=== PATIENT | female | born 1940 | race Caucasian/White ===

== ENCOUNTER 2018-11-26 15:22 | Emergency (ER) | payer MEDICARE ==
[~2018-11-26] VITALS: Ht 167.6 cm; Wt 79.5 kg
[2018-11-26] MEDS ORDERED: normal saline 1000ML IV soln IVB ONE ×2 (15:35→18:15)
[2018-11-26] MEDS ORDERED: ondansetron/PF 4mg/2ml inj IV ONE ×2 (15:35→17:45)
[2018-11-26 15:55] LABS: BASOPHILS % (AUTO) 0.6 % (0-1); EOSINOPHILS # (AUTO) 0.1 X10'3 (0-0.9); EOSINOPHILS % (AUTO) 0.7 % (0-6); HEMOGLOBIN 14.6 g/dl (12.0-16.0); LYMPHOCYTES # (AUTO) 0.6 X10'3 (1.1-4.8); LYMPHOCYTES % (AUTO) 6.3 % (21-51); MEAN CORPUSCULAR HEMOGLOBIN 33.6 PG (27.0-31.0); MEAN CORPUSCULAR HGB CONC 33.9 g/dL (33.0-36.5); MEAN CORPUSCULAR VOLUME 99.3 FL (78-98); MEAN PLATELET VOLUME 7.8 FL (7.4-10.4); MONOCYTES # (AUTO) 0.5 X10'3 (0-0.9); MONOCYTES % (AUTO) 5.2 % (2-12); NEUTROPHILS # (AUTO) 7.8 X10'3 (1.8-7.7); NEUTROPHILS % (AUTO) 87.2 % (42-75); PLATELET COUNT 221 X10'3 (140-440); RED BLOOD COUNT 4.33 X10'6 (4.20-5.60); RED CELL DISTRIBUTION WIDTH 12.9 % (11.5-14.5); WHITE BLOOD COUNT 8.9 X10'3 (4.5-11.0)
[2018-11-26] MEDS: diatr meglu/diatrizoate 30ml oral sol.-(3 dose) bottle PO SCH ×4 (15:56→17:47)
[2018-11-26 16:09] LABS: ALANINE AMINOTRANSFERASE 20 U/L (12-78); ALBUMIN 3.4 G/DL (3.4-5.0); BLOOD UREA NITROGEN 7 MG/DL (7-18); BUN/CREATININE RATIO 11.1 (6.6-38.0); CALCIUM 8.9 MG/DL (8.5-10.1); CREATININE 0.63 MG/DL (0.40-0.90); GLUCOSE 131 MG/DL (70-104); LIPASE 86 U/L (73-393); eGFR > 90 ML/MIN
[2018-11-26 16:10] LABS: ALBUMIN/GLOBULIN RATIO 0.8 (1.1-1.5); ALKALINE PHOSPHATASE 103 IU/L (46-116); ANION GAP 9 (8-16); ASPARTATE AMINO TRANSFERASE 9 U/L (10-37); BILIRUBIN,TOTAL 0.6 MG/DL (0.1-1.0); CHLORIDE 105 MMOL/L (99-107); POTASSIUM 3.9 MMOL/L (3.5-5.1); SODIUM 140 MMOL/L (135-145); TOTAL CARBON DIOXIDE 26.1 MMOL/L (24-32); TOTAL PROTEIN 7.5 G/DL (6.4-8.2)
[2018-11-26] MEDS ORDERED: proCHLORperazine 10 MG/2 ml inj IV ONE (18:05)
[2018-11-26 18:12] LABS: CLARITY,URINE SLIGHTLY CLOUDY (Clear); COLOR,URINE YELLOW (Yellow); GLUCOSE, URINE NEGATIVE (Neg); KETONES,URINE 15 mg/dl (Neg); LEUKOCYTE ESTERASE ,URINE NEGATIVE (Neg); NITRITES, URINE NEGATIVE (Neg); OCCULT BLOOD,URINE NEGATIVE (Neg); PH,URINE 5.5 (4.8-8.0); PROTEIN,URINE NEGATIVE (Neg)
[2018-11-26 18:15] LABS: UA COLLECTION TYPE CLN CATCH MIDSTREAM
[2018-11-26 18:22] LABS: BACTERIA,URINE FEW /HPF (Neg); MUCUS STRANDS FEW /LPF (Neg); RBC,URINE 0-2 /HPF (0-2); SQUAMOUS EPITHELIAL CELL,UR MANY /LPF (FEW); WBC,URINE 0-4 /HPF (0-4)
--- NOTE | 2018-11-26 18:35 | NUR ---
pt reports her nausea is improved. [facility] non-admin - per previous rn pt went to CT already.
[2018-11-26 18:36] VITALS: BP 141/66
--- NOTE | 2018-11-26 18:58 | NUR ---
daughter at bedside - PA updated pt on plan of care
--- NOTE | 2018-11-26 19:17 | NUR ---
PT GIVEN ICE CHIPS, CRACKERS AND APPLE JUICE FOR PO CHALLENGE. EXPLAINED TO PT TO START SLOW AND ADVANCE TOLERATED.
[2018-11-26] MEDS ORDERED: POLY17PO10 PO (19:29)
[2018-11-26] MEDS ORDERED: AMOX-422 PO (19:29)
[2018-11-26] MEDS ORDERED: BISA10SU60 RC (19:29)
[2018-11-26] MEDS ORDERED: ONDA4TAB6 PO (19:29)
[2018-11-26] MEDS ORDERED: polyethylene glycol 3350 17gm powd pack PO ONE (19:30)
[2018-11-26] MEDS ORDERED: lactulose 20gm/30ml cup PO ONE (19:30)
== END 2018-11-26 20:01 | disposition home or self-care (01) ==
LOC: ER 15:22
DX: K57.92 Diverticulitis of intestine, part unspecified, without perforation or abscess without bleeding (principal); K59.00 Constipation, unspecified; E86.0 Dehydration; Z79.2 Long term (current) use of antibiotics; Z79.899 Other long term (current) drug therapy
CPT/HCPCS: 36415; 71045; 74176; 80053; 81001; 83605; 83690; 84145; 85025; 87040; 93005; 96361; 96374; 96375; 96376; 99284; J0780; J2405; J7030; Q9963

== ENCOUNTER 2023-02-04 17:41 | Emergency (ER) | payer MEDICARE ==
[~2023-02-04] VITALS: Ht 170.2 cm; Wt 81.8 kg
[~2023-02-04 17:41] MED LIST: BISA10SU60 RC; ONDA4TAB6 PO
[2023-02-04 18:32] LABS: BILIRUBIN,URINE NEGATIVE (Neg); CLARITY,URINE CLOUDY (Clear); COLOR,URINE YELLOW (Yellow); GLUCOSE, URINE NEGATIVE (Neg); KETONES,URINE TRACE mg/dl (Neg); LEUKOCYTE ESTERASE ,URINE LARGE (Neg); NITRITES, URINE NEGATIVE (Neg); OCCULT BLOOD,URINE MODERATE (Neg); PROTEIN,URINE 100 mg/dl (Neg); UROBILINOGEN,URINE 0.2 E.U/dL (0.2-1.0)
[2023-02-04 18:32] LABS: BASOPHILS # (AUTO) 0.1 X10'3 (0-0.2); BASOPHILS % (AUTO) 0.7 % (0-1); EOSINOPHILS # (AUTO) 0.1 X10'3 (0-0.9); EOSINOPHILS % (AUTO) 0.8 % (0-6); HEMATOCRIT 41.7 % (35.0-45.0); HEMOGLOBIN 13.9 g/dl (12.0-16.0); LYMPHOCYTES # (AUTO) 1.7 X10'3 (1.1-4.8); MEAN CORPUSCULAR HEMOGLOBIN 32.2 PG (27.0-31.0); MEAN CORPUSCULAR HGB CONC 33.3 g/dL (33.0-36.5); MEAN CORPUSCULAR VOLUME 96.9 FL (78-98); MEAN PLATELET VOLUME 7.9 FL (7.4-10.4); MONOCYTES # (AUTO) 0.8 X10'3 (0-0.9); MONOCYTES % (AUTO) 7.7 % (2-12); NEUTROPHILS # (AUTO) 7.2 X10'3 (1.8-7.7); NEUTROPHILS % (AUTO) 73.8 % (42-75); PLATELET COUNT 212 X10'3 (140-440); RED BLOOD COUNT 4.31 X10'6 (4.20-5.60); RED CELL DISTRIBUTION WIDTH 13.5 % (11.5-14.5); WHITE BLOOD COUNT 9.7 X10'3 (4.5-11.0)
[2023-02-04 18:38] LABS: UA COLLECTION TYPE CLN CATCH MIDSTREAM
[2023-02-04 18:39] LABS: BACTERIA,URINE 2+ /HPF (Neg); SQUAMOUS EPITHELIAL CELL,UR FEW /LPF (FEW); WBC,URINE TNTC /HPF (0-4)
[2023-02-04 18:47] LABS: ALANINE AMINOTRANSFERASE 19 U/L (12-78); ALBUMIN 3.5 G/DL (3.4-5.0); ALBUMIN/GLOBULIN RATIO 0.9 (1.1-1.5); ALKALINE PHOSPHATASE 102 IU/L (46-116); ANION GAP 7 (8-16); ASPARTATE AMINO TRANSFERASE 16 U/L (10-37); BILIRUBIN,TOTAL 0.4 MG/DL (0.1-1.0); BLOOD UREA NITROGEN 19 MG/DL (7-18); BUN/CREATININE RATIO 18.3 (10.0-20.0); CALCIUM 9.4 MG/DL (8.5-10.1); CHLORIDE 106 MMOL/L (99-107); CREATININE 1.04 MG/DL (0.40-0.90); GLUCOSE 124 MG/DL (70-104); POTASSIUM 3.9 MMOL/L (3.5-5.1); SODIUM 139 MMOL/L (135-145); TOTAL PROTEIN 7.2 G/DL (6.4-8.2); eCRCL 42 ML/MIN; eGFR 51 ML/MIN
[2023-02-04 18:50] LABS: LIPASE 37 U/L (16-77)
[2023-02-04] MEDS ORDERED: cephalexin 250mg capsule PO ONE (20:50)
[2023-02-04] MEDS ORDERED: CEPH-585 PO (21:55)
--- NOTE | 2023-02-04 22:45 | NUR ---
REC'D PT FOR DC, IN POC IN NAD
[2023-02-04 23:14] VITALS: BP 115/59; PULSE 75; RESP 18; TEMP 97.9; O2SAT 97
== END 2023-02-04 22:40 | disposition home or self-care (01) ==
LOC: ER 17:42
DX: N39.0 Urinary tract infection, site not specified (principal); N81.10 Cystocele, unspecified
CPT/HCPCS: 36415; 80053; 81001; 83690; 85025; 87088; 99284